=== PATIENT | female | born 1975 | race Two or more races ===

== ENCOUNTER 2017-12-06 11:37 | Outpatient (CLI) | payer OTHER | END 2017-12-06 17:00 | disposition home or self-care (01) | LOC: SONOGRAMA 11:37 | DX: M25.521 Pain in right elbow (principal) ==

== ENCOUNTER 2018-02-19 15:14 | Outpatient (CLI) | payer OTHER | END 2018-02-19 15:15 | disposition home or self-care (01) | LOC: SONOGRAMA 15:14 | DX: M54.2 Cervicalgia (principal) ==

== ENCOUNTER 2018-03-18 14:47 | Outpatient (CLI) | payer OTHER | END 2018-03-18 14:58 | disposition home or self-care (01) | LOC: MAMO-SONO 14:47 | DX: Z12.31 Encounter for screening mammogram for malignant neoplasm of breast (principal); N60.11 Diffuse cystic mastopathy of right breast; N60.12 Diffuse cystic mastopathy of left breast ==

== ENCOUNTER 2019-01-13 11:42 | Outpatient (CLI) | payer OTHER | END 2019-01-13 11:50 | disposition home or self-care (01) | LOC: RAD 501 11:42 | DX: M54.2 Cervicalgia (principal) ==

== ENCOUNTER 2019-02-11 07:29 | Outpatient (CLI) | payer OTHER | END 2019-02-11 07:33 | disposition home or self-care (01) | LOC: SONOGRAMA 07:29 | DX: R10.2 Pelvic and perineal pain (principal) ==

== ENCOUNTER 2019-07-28 12:25 | Outpatient (CLI) | payer OTHER | END 2019-07-28 12:36 | disposition home or self-care (01) | LOC: RAD 12:25 | DX: R19.04 Left lower quadrant abdominal swelling, mass and lump (principal); Z01.811 Encounter for preprocedural respiratory examination; D64.89 Other specified anemias; N39.0 Urinary tract infection, site not specified; R79.89 Other specified abnormal findings of blood chemistry ==

== ENCOUNTER 2019-08-07 07:06 | Day surgery (SDC) | payer OTHER | END 2019-08-07 13:10 | disposition home or self-care (01) | LOC: CIR.AMB 07:06 | DX: N83.292 Other ovarian cyst, left side (principal); N83.12 Corpus luteum cyst of left ovary ==

== ENCOUNTER 2019-11-19 14:01 | Outpatient (CLI) | payer OTHER | END 2019-11-19 14:02 | disposition home or self-care (01) | LOC: SONOGRAMA 14:01 | DX: R22.1 Localized swelling, mass and lump, neck (principal); C50.419 Malignant neoplasm of upper-outer quadrant of unspecified female breast ==

== ENCOUNTER → 2020-01-02 | Outpatient (CLI) | payer OTHER | END | disposition home or self-care (01) | LOC: MAMO-SONO 10:15 | DX: Z12.31 Encounter for screening mammogram for malignant neoplasm of breast (principal); M65.841 Other synovitis and tenosynovitis, right hand; M67.431 Ganglion, right wrist ==

== ENCOUNTER 2020-07-09 09:51 | Outpatient (CLI) | payer OTHER | END 2020-07-09 10:07 | disposition home or self-care (01) | LOC: SONOGRAMA 09:51 | PROVIDERS: ATTEND Obstetrics & Gynecology Gynecologic Oncology | DX: N92.5 Other specified irregular menstruation (principal) ==

== ENCOUNTER 2020-07-14 15:44 | Outpatient (CLI) | payer OTHER | END 2020-07-14 15:55 | disposition home or self-care (01) | LOC: RAD 15:44 | PROVIDERS: ATTEND Physical Medicine & Rehabilitation | DX: M54.6 Pain in thoracic spine (principal); M17.11 Unilateral primary osteoarthritis, right knee ==

== ENCOUNTER 2020-07-29 12:08 | Outpatient (CLI) | payer OTHER | END 2020-07-29 12:30 | disposition home or self-care (01) | LOC: MRI 12:08 | PROVIDERS: ATTEND Physical Medicine & Rehabilitation | DX: M54.2 Cervicalgia (principal); M48.02 Spinal stenosis, cervical region | CPT/HCPCS: 72141 ==

== ENCOUNTER 2020-08-09 08:01 | Outpatient (CLI) | payer OTHER | END 2020-08-09 08:04 | disposition home or self-care (01) | LOC: SONOGRAMA 08:01 → MAMO-SONO 08:15 | PROVIDERS: ATTEND Otolaryngology Otology & Neurotology | DX: K76.0 Fatty (change of) liver, not elsewhere classified (principal) ==

== ENCOUNTER 2021-01-10 12:15 | Outpatient (CLI) | payer OTHER | END 2021-01-10 12:23 | disposition home or self-care (01) | LOC: RAD 12:15 | PROVIDERS: ATTEND Physical Medicine & Rehabilitation | DX: M25.512 Pain in left shoulder (principal) ==

== ENCOUNTER 2021-06-20 08:46 | Outpatient (CLI) | payer OTHER | END 2021-06-20 08:50 | disposition home or self-care (01) | LOC: MAMO-SONO 08:46 | PROVIDERS: ATTEND Obstetrics & Gynecology | DX: R92.1 Mammographic calcification found on diagnostic imaging of breast (principal); Z12.31 Encounter for screening mammogram for malignant neoplasm of breast; N60.11 Diffuse cystic mastopathy of right breast; N60.12 Diffuse cystic mastopathy of left breast ==

== ENCOUNTER 2021-07-29 10:33 | Outpatient (CLI) | payer OTHER | END 2021-07-29 10:44 | disposition home or self-care (01) | LOC: RAD 10:33 | PROVIDERS: ATTEND Internal Medicine Rheumatology | DX: R07.89 Other chest pain (principal); M35.01 Sjogren syndrome with keratoconjunctivitis ==

== ENCOUNTER 2021-08-24 09:10 | Outpatient (CLI) | payer OTHER | END 2021-08-24 09:25 | disposition home or self-care (01) | LOC: SONOGRAMA 09:10 → MAMO-SONO 09:15 → SONOGRAMA 09:25 | PROVIDERS: ATTEND Internal Medicine Rheumatology | DX: M65.811 Other synovitis and tenosynovitis, right shoulder (principal); M65.812 Other synovitis and tenosynovitis, left shoulder ==

== ENCOUNTER 2021-11-22 08:52 | Outpatient (CLI) | payer OTHER | END 2021-11-22 08:58 | disposition home or self-care (01) | LOC: SONOGRAMA 08:52 | PROVIDERS: ATTEND Obstetrics & Gynecology | DX: N83.01 Follicular cyst of right ovary (principal); N83.02 Follicular cyst of left ovary ==

== ENCOUNTER 2021-12-21 07:34 | Outpatient (CLI) | payer OTHER | END 2021-12-21 07:49 | disposition home or self-care (01) | LOC: TOM 07:34 | PROVIDERS: ATTEND Otolaryngology Otology & Neurotology | DX: K57.00 Diverticulitis of small intestine with perforation and abscess without bleeding (principal) ==

== ENCOUNTER 2022-03-30 08:39 | Outpatient (CLI) | payer OTHER | END 2022-03-30 08:56 | disposition home or self-care (01) | LOC: SONOGRAMA 08:39 | PROVIDERS: ATTEND Otolaryngology Otology & Neurotology | DX: I88.0 Nonspecific mesenteric lymphadenitis (principal) ==

== ENCOUNTER 2023-04-13 13:38 | Outpatient (CLI) | payer OTHER | END 2023-04-13 13:46 | disposition home or self-care (01) | LOC: RAD 13:38 | PROVIDERS: ATTEND Physical Medicine & Rehabilitation | DX: M25.521 Pain in right elbow (principal) ==

== ENCOUNTER 2023-12-10 13:59 | Outpatient (CLI) | payer OTHER | END 2023-12-10 14:05 | disposition home or self-care (01) | LOC: RAD 13:59 | DX: J06.9 Acute upper respiratory infection, unspecified (principal); Z20.828 Contact with and (suspected) exposure to other viral communicable diseases ==

== ENCOUNTER 2024-11-15 12:19 | Outpatient (CLI) | payer OTHER ==
[2024-11-15 13:27] LABS: PH,URINE 7.5 (5.0-8.0); URINE APPEARANCE Clear; URINE BILIRRUBIN Negative (NEGATIVE); URINE BLOOD Negative; URINE COLOR Yellow; URINE GLUCOSE Negative (NEGATIVE); URINE KETONE Negative (NEGATIVE); URINE LEUKOCYTE Negative; URINE NITRATE Negative; URINE PROTEIN Negative (NEGATIVE); URINE UROBILINOGEN 0.2 E.U./dl
[2024-11-15 13:30] LABS: URINE BACTERIA 23.2 uL (0.0-1933); URINE RBC 2.3 uL (0.0-20.8)
[2024-11-15 13:37] LABS: HEMATOCRIT 38.8 % (36.0-45.00); HEMOGLOBIN 13.4 g/dL (12.0-15.00); MEAN CELL VOLUME 91.3 fL (80.00-100.00); MEAN CORPUSCULAR HEMOGLOBIN 31.5 pg (27.00-32.0); MEAN CORPUSCULAR HGB CONC 34.5 g/dl (32.0-36.0); PLATELET COUNT 185 K/uL (150-450); RED BLOOD COUNT 4.25 M/uL (4.00-6.00); RED CELL DISTRIBUTION WIDTH 13.7 % (11.5-14.5); URINE WBC 0.3 uL (0.0-23.2)
[2024-11-15 14:01] LABS: MYCOPLASMA PNEUMONIAE IGM NON REACTIVE (NO REACTIVE)
== END 2024-11-15 12:30 | disposition home or self-care (01) ==
LOC: LAB 12:19
PROVIDERS: ATTEND General Practice
DX: A49.3 Mycoplasma infection, unspecified site (principal); J11.1 Influenza due to unidentified influenza virus with other respiratory manifestations; R50.9 Fever, unspecified; N39.0 Urinary tract infection, site not specified; Z20.822 Contact with and (suspected) exposure to COVID-19

== ENCOUNTER 2025-03-11 11:32 | Outpatient (CLI) | payer OTHER | END 2025-03-11 11:34 | disposition home or self-care (01) | LOC: SONOGRAMA 11:32 | PROVIDERS: ATTEND Internal Medicine | DX: E04.2 Nontoxic multinodular goiter (principal) ==

== ENCOUNTER 2025-07-21 08:03 | Outpatient (CLI) | payer OTHER | END 2025-07-21 08:09 | disposition home or self-care (01) | LOC: SONOGRAMA 08:03 | PROVIDERS: ATTEND Internal Medicine Gastroenterology | DX: R10.9 Unspecified abdominal pain (principal); K21.9 Gastro-esophageal reflux disease without esophagitis ==